=== PATIENT | male | born 1945 | race Caucasian/White ===

== ENCOUNTER 2022-11-14 04:06 | Inpatient (IN) | payer MEDICARE, BC ==
[2022-11-14] VITALS (46 sets, daily range): BP systolic 86–144; BP diastolic 49–99
[~2022-11-14] VITALS: Ht 182.9 cm; Wt 83.0 kg
--- NOTE | 2022-11-14 04:15 | NUR ---
To ER bed 12 [id number], from home, c/o Left flank pain this morning, 04/11 ps, aaox4, breathing even and non labored, connected to monitor, awaiting md andrade
[2022-11-14] MEDS ORDERED: KETOROLAC TROMETHAMINE INJ 30 MG/ML VIAL ONE (04:23)
[2022-11-14] MEDS ORDERED: IV NS 0.9% 1,000 ML BAG IV ONE ×2 (04:30→05:30)
[2022-11-14] MEDS ORDERED: KETOROLAC TROMETHAMINE INJ 30 MG/ML VIAL IV ONE (04:30)
[2022-11-14 04:57] LABS: BASOPHILS % (AUTO) 0.4 % (0.0-2.0); EOSINOPHILS % (AUTO) 1.4 % (0.0-6.0); HEMATOCRIT 38 % (39-51); HEMOGLOBIN 12.2 g/dL (13.5-17.5); LYMPHOCYTES # (AUTO) 0.3 K/uL (0.8-4.8); LYMPHOCYTES % (AUTO) 2.5 % (20.0-44.0); MEAN CORPUSCULAR HGB CONC 32 g/dl (31.0-36.0); MEAN CORPUSCULAR VOLUME 89 fL (80-96); MONOCYTES % (AUTO) 0.4 % (2.0-12.0); NEUTROPHILS # (AUTO) 12.2 K/uL (1.8-8.9); NEUTROPHILS % (AUTO) 95.3 % (43.0-81.0); PLATELET COUNT (AUTO) 261 K/uL (150-450); RED BLOOD CELL COUNT(AUTO) 4.27 MIL/uL (4.5-6.0); WHITE BLOOD COUNT (AUTO) 12.8 K/uL (4.3-11.0)
--- NOTE | 2022-11-14 05:01 | NUR ---
PT UROLOGIST- DR CALE BUCHANAN
[2022-11-14 05:09] LABS: CALCIUM, SERUM 8.6 mg/dL (8.5-10.1); CARBON DIOXIDE 15 mmol/L (21-32); CHLORIDE 91 mmol/L (98-107); CREATININE 6.4 mg/dL (0.6-1.3); GLUCOSE 54 mg/dL (74-106); POTASSIUM 5.3 mmol/L (3.5-5.1); SODIUM SERUM 125 mmol/L (136-145)
[2022-11-14] MEDS ORDERED: CEFEPIME 1 GM VIAL ONE (05:20)
[2022-11-14] MEDS ORDERED: ONDANSETRON HCL/PF 4 MG/2 ML VIAL ONE (05:20)
[2022-11-14] MEDS ORDERED: VANCOMYCIN 1 GM /D5W 250 ML PB IV ONE (05:21)
[2022-11-14 05:26] LABS: ALANINE AMINOTRANSFERASE 64 U/L (12-78); ALBUMIN 2.1 g/dL (3.4-5.0); ASPARTATE AMINOTRANSFERASE 76 U/L (15-37); BILIRUBIN,DIRECT 1.1 mg/dL (0.0-0.2); BILIRUBIN,TOTAL 1.7 mg/dL (0.2-1.0); TOTAL PROTEIN, SERUM 6.3 g/dL (6.4-8.2)
[2022-11-14 05:29] LABS: ALKALINE PHOSPHATASE 1230 U/L (46-116)
[2022-11-14 05:30] LABS: UREA NITROGEN, BLOOD 101 mg/dL (7-18)
[2022-11-14] MEDS ORDERED: ONDANSETRON HCL/PF - ER 4 MG/2 ML VIAL IV ONE (05:30)
[2022-11-14] MEDS ORDERED: CEFEPIME 1 GM in IV D5W 50 ML IV ONE (05:30)
[2022-11-14] MEDS ORDERED: VANCOMYCIN 1 GM in IV D5W 250 ML IV ONE (05:30)
[2022-11-14] MEDS ORDERED: MORPHINE SULFATE INJ 2 MG/ML DISP.SYRIN IV ONE ×2 (05:30→07:00)
[2022-11-14] MEDS ORDERED: MORPHINE SULFATE INJ 4 MG/ML DISP.SYRIN ONE ×2 (05:34→06:53)
--- NOTE | 2022-11-14 05:38 | NUR ---
MEDARDO VALDEZ AT BEDSIDE FOR BLOOD DRAW
--- NOTE | 2022-11-14 05:45 | NUR ---
DR BURKETT PAGED PER DR STARR.
--- NOTE | 2022-11-14 06:10 | NUR ---
ANDREE THOMASON PER DR DAVIS SUAREZ BP IMPROVES
[2022-11-14] MEDS ORDERED: Z GUARD REMEDY 4 OZ OINT TP PRN (08:00)
[2022-11-14] MEDS ORDERED: DEXTROSE 50%-WATER 50 ML DISP.SYRIN IV PRN (08:00)
[2022-11-14] MEDS ORDERED: ACETAMINOPHEN 325 MG TABLET PO PRN (08:00)
[2022-11-14] MEDS ORDERED: ONDANSETRON HCL/PF 4 MG/2 ML VIAL IVP PRN (08:00)
[2022-11-14] MEDS ORDERED: MAGNESIUM HYDROXIDE 30 ML UDC PO PRN (08:00)
[2022-11-14] MEDS ORDERED: TAMSULOSIN 0.4 MG CAP.SR.24H PO ONE (08:00)
[2022-11-14] MEDS ORDERED: MAG HYDROX/AL HYDROX/SIMETH 30 ML UDC PO PRN (08:00)
[2022-11-14] MEDS ORDERED: NOREPINEPHRINE 8 MG in IV NS 0.9% 242 ML IV PRN ×2 (08:00→12:00)
--- NOTE | 2022-11-14 09:12 | NUR ---
PATIENT RESTING COMFORTABLY , NO SIGNS AND SYMPTOMS OF DISTRESS. VITAL SIGNS STABLE.
--- NOTE | 2022-11-14 10:06 | NUR ---
GOT BED 262 ADMITTING INFORMED.
--- NOTE | 2022-11-14 10:30 | NUR ---
PRICE ECONOMIST AT BEDSIDE
--- NOTE | 2022-11-14 10:41 | NUR ---
REPORT GIVEN TO SIMON FOR JANES
--- NOTE | 2022-11-14 10:58 | NUR ---
RN NOTES RECEIVED PT FROM ER, IN ROOM 261, A/Ox4, ON 2L O2 N/C , O2 SAT WNL, ON TELE SR , PT ON LEVO FOR BP SUPPORT, IVF NS AT 75 CC/HR STARTED, IV SITE CDI, PT DENIES ANY PAIN AT THIS TIME, SR UP x3 , CALL LIGHT WITHIN EASY REACH, BED LOCKED AND IN LOWEST POSITION, CONTINUE TO MONITOR.
[2022-11-14] MEDS ORDERED: MORPHINE SULFATE INJ 4 MG/ML DISP.SYRIN IV PRN (11:30)
[2022-11-14] MEDS: IV NS 0.9% 1,000 ML IV PRN ×2 (11:33→23:29)
[2022-11-14] MEDS: PANTOPRAZOLE 40 MG VIAL IV SCH (11:36)
--- NOTE | 2022-11-14 11:59 | NUR ---
MACI THOMPSON GOING TO TALK WITH BRICK YARD HAND, DO TO NOT ENOUGH FLUID TO DRAIN,IF DR STILL WANTS PROCEDURE PT NEEDS LABS ,COAGS, NPO , AND HOLD ON BLOOD THINNERS, STANDING BY FOR
[2022-11-14] MEDS: BLOOD SUGAR DIAGNOSTIC 1 EACH STRIP IN SCH ×3 (12:05→21:56)
[2022-11-14] MEDS: NOREPINEPHRINE 32 MG in IV NS 0.9% 250 ML IV PRN ×2 (12:52→13:32)
--- NOTE | 2022-11-14 15:15 | NUR ---
RN NOTES CONSENT SIGNED BY PT FOR JJ STENT PLACEMENT .
[2022-11-14 15:33] LABS: BILIRUBIN,URINE NEGATIVE (NEGATIVE); COLOR,URINE YELLOW (YELLOW); LEUKOCYTE ESTERASE ,URINE 1+ (NEGATIVE); NITRITE, URINE NEGATIVE (NEGATIVE); PH,URINE 5.5 (5.0-8.0); PROTEIN,URINE 1+ mg/dl (NEGATIVE); UGLUCOSE NEGATIVE (NEGATIVE)
[2022-11-14 15:39] LABS: BACTERIA,URINE 2+ /HPF (None Seen); MUCUS,URINE Few /LPF (None Seen); URINE AMORPHOUS URATE Many /HPF (None Seen)
[2022-11-14] MEDS ORDERED: ANESTHESIA TRAY IN PYXIS 1 EA TRAY MC ONE ×2 (15:52→15:53)
--- NOTE | 2022-11-14 16:10 | NUR ---
RN NOTES PT TO OR IN STABLE CONDITION AT THIS TIME
[2022-11-14] MEDS ORDERED: FENTANYL PF 100MCG/2ML AMPUL ONE (16:40)
--- NOTE | 2022-11-14 17:55 | NUR ---
RN NOTES PT RECEIVED FROM RECOVERY, DRAWZY EASY TO AROUSE , FOLLOWS COMMANDS , ON A FACE MASK AT 6L, VSS STABLE CONTINUE TO MONITOR
--- NOTE | 2022-11-14 18:25 | NUR ---
RN NOTES LEVO AT 0.1 MCG/KG/MIN, PT AWAKE, IVF AT 75CC/HR RUNNING, SR UP x3, CALL LIGHT WITHIN EASY REACH, BED LOCKED AND IN LOWEST POSITION , WILL ENDORSE TO CLOUD ADMINISTRATOR NURSE FOR CONTINUITY OF CARE .
--- NOTE | 2022-11-14 19:30 | NUR ---
RECEIVED PT AWAKE ON BED, RESTING COMFORTABLY. A/OX4. PT IS ON ROOM AIR. 02SAT 92%. ATTACHED TO MDM DEVELOPER SHOWING NSR. IV SITES ON LFA #20G AND RT AC #20G C/D/I, IVF NS INFUSING AT 75 ML/HR, LEVO INFUSING AT 0.1 MCG/KG/MIN. URINAL AT BEDSIDE. OFFERED TO ASSIST PT TO URINATE. SAFETY MEASURES IN PLACE. SR UP x2, CALL LIGHT WITHIN EASY REACH, BED LOCKED AND IN LOWEST POSITION. HOB ELEVATED. WILL CONTINUE PLAN OF CARE.
[2022-11-14] MEDS: ZOLPIDEM TARTRATE 5 MG TABLET PO PRN (21:56)
--- NOTE | 2022-11-14 22:25 | NUR ---
DIGITAL ASSOCIATE informed. blood culture result shows gram variable rods, seen on gram.
[2022-11-14] MEDS: INSULIN REGULAR, HUMAN 100 UNIT/ML 3 ML VIAL SQ PRN (22:30)
--- NOTE | 2022-11-14 23:00 | NUR ---
PICC LINE INSERTED ON TALIA. PLACEMENT CONFIRMED BY XRAY.
[2022-11-15] VITALS (45 sets, daily range): BP systolic 94–140; BP diastolic 52–85
[2022-11-15 04:55] LABS: BASOPHILS # (AUTO) 0.1 K/uL (0.0-0.2); BASOPHILS % (AUTO) 0.4 % (0.0-2.0); EOSINOPHILS % (AUTO) 1.8 % (0.0-6.0); HEMATOCRIT 33 % (39-51); HEMOGLOBIN 10.6 g/dL (13.5-17.5); LYMPHOCYTES # (AUTO) 0.9 K/uL (0.8-4.8); LYMPHOCYTES % (AUTO) 3.4 % (20.0-44.0); MEAN CORPUSCULAR HGB CONC 32 g/dl (31.0-36.0); MEAN CORPUSCULAR VOLUME 89 fL (80-96); MONOCYTES # (AUTO) 1.1 K/uL (0.1-1.30); NEUTROPHILS # (AUTO) 23.8 K/uL (1.8-8.9); NEUTROPHILS % (AUTO) 90.4 % (43.0-81.0); PLATELET COUNT (AUTO) 231 K/uL (150-450); RED BLOOD CELL COUNT(AUTO) 3.72 MIL/uL (4.5-6.0); WHITE BLOOD COUNT (AUTO) 26.3 K/uL (4.3-11.0)
[2022-11-15 05:14] LABS: CALCIUM, SERUM 7.6 mg/dL (8.5-10.1); CARBON DIOXIDE 17 mmol/L (21-32); CHLORIDE 95 mmol/L (98-107); CHOLESTEROL 92 mg/dL (<200); CREATININE 6.3 mg/dL (0.6-1.3); GLUCOSE 119 mg/dL (74-106); HDL CHOLESTEROL 11 mg/dL (40-60); LDL 18 mg/dL (0-99); MAGNESIUM 1.8 mg/dL (1.8-2.4); PHOSPHORUS 3.1 mg/dL (2.5-4.9); POTASSIUM 5.3 mmol/L (3.5-5.1); SODIUM SERUM 127 mmol/L (136-145); TRIGLYCERIDES 505 mg/dL (30-150)
[2022-11-15 05:19] LABS: UREA NITROGEN, BLOOD 99 mg/dL (7-18)
[2022-11-15] MEDS: CEFEPIME 2 GM in IV D5W 100 ML IV SCH (05:25)
[2022-11-15 06:12] LABS: EOSINOPHILS % (MANUAL) 1 % (0-4); LYMPHOCYTES % (MANUAL) 1 % (16-48); MYELOCYTES % 97 % (0-0); PROMYELOCYTES % 1 % (0-0)
--- NOTE | 2022-11-15 07:15 | NUR ---
RECEIVED REPORT ON PATIENT FROM RUST MACI JACK. PATIENT REMAINS IN ROOM, ASLEEP BUT EASILY AWOKEN. ALERT AND ORIENTED TIMES 4. SINUS RYTHYM ON BEDSIDE MONITOR AT THIS TIME. URINAL AT BEDSIDE, PATIENT IS CONTINENT. NPO STATUS NOTED. IV ACCESS ON LEFT FORE ARM AND RIGHT ANTECUBITAL, BOTH 20 GAUGE. ALSO WITH RIGHT UPPER ARM PICC LINE. INFUSING FLUIDS AND LEVOPHED ORDERED. SAFETY MEASURES IMPLEMENTED, WILL CONTINUE PLAN OF CARE AND ANTICIPATE NEEDS.
[2022-11-15] MEDS: BLOOD SUGAR DIAGNOSTIC 1 EACH STRIP IN SCH ×4 (07:30→22:17)
--- NOTE | 2022-11-15 07:53 | NUR ---
BLOOD SUGAR CHECK READING 132. HOLDING INSULIN DUE TO NPO STATUS
--- NOTE | 2022-11-15 08:11 | NUR ---
PATIENT ASLEEP BUT EASILY AROUSABLE/RESPONSIVE. A/OX4. SR ON BEDSIDE MONITOR. URINAL AT BEDSIDE, PATIENT IS CONTINENT. NPO. IV ACCESS ON LEFT FORE ARM AND RIGHT ANTECUBITAL, BOTH 20 GAUGE. ALSO WITH RIGHT UPPER ARM PICC LINE. INFUSING FLUIDS AND LEVOPHED ORDERED. SAFETY MEASURES MAINTAINED. WILL ENDORSE TO NEXT NURSE ON DUTY FOR CONTINUITY OF CARE.
[2022-11-15] MEDS: PANTOPRAZOLE 40 MG VIAL IV SCH (08:20)
--- NOTE | 2022-11-15 10:30 | NUR ---
PATIENT ASLEEP AND SNORING. OXYGEN SATURATION DOWN TO 85-88%. pLACED ON 2 LITERS NASAL CANULA. WILL CONTINUE TO ASSESS.
[2022-11-15] MEDS ORDERED: ALLO100T PO (12:10)
[2022-11-15] MEDS ORDERED: ROSU20TA32 PO (12:10)
[2022-11-15] MEDS ORDERED: AMLO-213 PO (12:10)
[2022-11-15] MEDS ORDERED: HYDR-3972 PO (12:10)
[2022-11-15] MEDS ORDERED: METF-442 PO (12:10)
[2022-11-15] MEDS ORDERED: CARV12.52 PO (12:10)
[2022-11-15] MEDS ORDERED: ONDA8TAB13 PO (12:10)
[2022-11-15] MEDS ORDERED: TAMS-12 PO (12:10)
[2022-11-15] MEDS ORDERED: RAMI10CA69 PO (12:10)
[2022-11-15] MEDS: IV NS 0.9% 1,000 ML IV PRN (13:02)
[2022-11-15] MEDS ORDERED: SODIUM POLYSTYRENE SULF. PWD 15 GM UDC PO ONE (14:00)
[2022-11-15] MEDS: IV NS 0.9% 1,000 ML IV SCH (14:00)
[2022-11-15] MEDS: INSULIN REGULAR, HUMAN 100 UNIT/ML 3 ML VIAL SQ PRN ×2 (16:55→22:29)
--- NOTE | 2022-11-15 19:19 | NUR ---
HAND OFF REPORT GIVEN TO MARCIE FOR CONTINUATION OF CARE.
--- NOTE | 2022-11-15 19:30 | NUR ---
PATIENT AWAKE RESTING COMFORTABLY WITH AT BEDSIDE. A/OX4. SR ON BEDSIDE MONITOR. URINAL AND COMMODE AT BEDSIDE, PATIENT IS CONTINENT. IV ACCESS ARE TALIA PICC LINE, LEFT FORE ARM #20G AND RIGHT ANTECUBITAL #20G, INFUSING 0.9 NS @ 90 ML/HR. SAFETY MEASURES IN PLACE. SR UP x2, BED LOCKED AND IN LOWEST POSITION. HOB ELEVATED. WILL CONTINUE PLAN OF CARE.
[2022-11-15] MEDS: ZOLPIDEM TARTRATE 5 MG TABLET PO PRN (22:17)
[2022-11-16] VITALS (20 sets, daily range): BP systolic 100–153; BP diastolic 56–83
[2022-11-16] MEDS: IV NS 0.9% 1,000 ML IV SCH (00:31)
[2022-11-16] MEDS: CEFEPIME 2 GM in IV D5W 100 ML IV SCH (04:31)
[2022-11-16 04:42] LABS: BASOPHILS # (AUTO) 0.1 K/uL (0.0-0.2); BASOPHILS % (AUTO) 0.4 % (0.0-2.0); EOSINOPHILS % (AUTO) 3.7 % (0.0-6.0); HEMATOCRIT 30 % (39-51); HEMOGLOBIN 9.9 g/dL (13.5-17.5); LYMPHOCYTES # (AUTO) 1.3 K/uL (0.8-4.8); LYMPHOCYTES % (AUTO) 7.3 % (20.0-44.0); MEAN CORPUSCULAR HGB CONC 33 g/dl (31.0-36.0); MEAN CORPUSCULAR VOLUME 88 fL (80-96); MONOCYTES # (AUTO) 0.6 K/uL (0.1-1.30); MONOCYTES % (AUTO) 3.5 % (2.0-12.0); NEUTROPHILS # (AUTO) 15.1 K/uL (1.8-8.9); NEUTROPHILS % (AUTO) 85.1 % (43.0-81.0); PLATELET COUNT (AUTO) 193 K/uL (150-450); RED BLOOD CELL COUNT(AUTO) 3.45 MIL/uL (4.5-6.0); WHITE BLOOD COUNT (AUTO) 17.7 K/uL (4.3-11.0)
[2022-11-16 05:14] LABS: CALCIUM, SERUM 7.4 mg/dL (8.5-10.1); CARBON DIOXIDE 20 mmol/L (21-32); CHLORIDE 100 mmol/L (98-107); CREATININE 5.8 mg/dL (0.6-1.3); GLUCOSE 113 mg/dL (74-106); POTASSIUM 4.5 mmol/L (3.5-5.1); SODIUM SERUM 131 mmol/L (136-145)
[2022-11-16 05:17] LABS: UREA NITROGEN, BLOOD 105 mg/dL (7-18)
--- NOTE | 2022-11-16 07:38 | NUR ---
PATIENT AWAKE RESTING COMFORTABLY WITH AT BEDSIDE. A/OX4. SR ON BEDSIDE MONITOR. URINAL AND COMMODE AT BEDSIDE, PATIENT IS CONTINENT. IV ACCESS ARE TALIA PICC LINE, LEFT FORE ARM #20G AND RIGHT ANTECUBITAL #20G, INFUSING 0.9 NS @ 90 ML/HR. SAFETY MEASURES IN PLACE. SR UP x2, BED LOCKED AND IN LOWEST POSITION. HOB ELEVATED. WILL ENDORSE TO NEXT NURSE ON DUTY FOR CONTINUITY OF CARE.
--- NOTE | 2022-11-16 07:42 | NUR ---
RN ANESTHESIOLOGY OPENING NOTES RECEIVED PATIENT SLEEPING, EASILY AWAKEN. ON 02 VIA NC AT 2LPM 02,TOLERATING WELL, NO SOB NOTED, RESPIRATION EVEN AND UNLABORED. A/OX4. URINAL AND COMMODE AT BEDSIDE, PATIENT IS CONTINENT. IV ACCESS ARE TALIA PICC LINE, LEFT FORE ARM #20G AND RIGHT ANTECUBITAL #20G, INFUSING 0.9 NS @ 90 ML/HR. SAFETY MEASURES IN PLACE. SR UP x2, BED LOCKED AND IN LOWEST POSITION. PLAN OF CARE CONTINUE.
[2022-11-16] MEDS: BLOOD SUGAR DIAGNOSTIC 1 EACH STRIP IN SCH ×4 (07:49→21:24)
[2022-11-16] MEDS: PANTOPRAZOLE 40 MG VIAL IV SCH (08:06)
[2022-11-16] MEDS: PANTOPRAZOLE 40 MG TABLET.DR PO SCH (08:19)
[2022-11-16] MEDS: IV NS 0.9% 1,000 ML IV PRN ×2 (09:52→23:06)
[2022-11-16] MEDS: INSULIN REGULAR, HUMAN 100 UNIT/ML 3 ML VIAL SQ PRN ×3 (11:51→21:27)
[2022-11-16] MEDS ORDERED: VANCOMYCIN 1 GM in IV D5W 250 ML IV SCH (14:00)
--- NOTE | 2022-11-16 16:25 | NUR ---
PATIENT'S KAMLA BERNAL WANT'S TO SPEAK WITH DR. AREVALO GAVE 'S PHONE NO [phone]. AWAITING FOR RESPOND.
--- NOTE | 2022-11-16 18:55 | NUR ---
TRANSFERRED PATIENT TO MED SURG DEPARTMENT ROOM 310-2 VIA ACLS PROTOCOL, AT THE BEDSIDE, TRANSFERRED ALL MEDICATIONS AND PERSONAL BELONGINGS WITH THE PATIENT. GAVE BEDSIDE REPORT TO RAHUL LUX.
--- NOTE | 2022-11-16 19:22 | NUR ---
ADMISSION NOTES RECEIVED PATIENT FROM ICU ACCOMPANIED BY ICU STAFF. PATIENT AWAKE RESTING COMFORTABLY WITH AT BEDSIDE. A/OX4. ON OXYGEN AT 2LPM, NO RESPIRATORY OR CARDIAC DISTRESS NOTED. PLACED TELE MONITOR WITH CURRENT READ OF SR HR 85. IV ACCESS ARE TALIA PICC LINE, LEFT FORE ARM #20G AND RIGHT ANTECUBITAL #20G, INFUSING 0.9 NS @ 90 ML/HR. ORIENTED PATIENT TO ROOM. SAFETY MEASURES IN PLACE. SR UP x2, BED LOCKED AND IN LOWEST POSITION. HOB ELEVATED. WILL ENDORSE TO NEXT NURSE ON DUTY FOR CONTINUITY OF CARE.
--- NOTE | 2022-11-16 19:30 | NUR ---
FABRICATOR ARTIFICIAL BREAST OPENING NOTE RECEIVED PATIENT IN BED, WITH HOB ELEVATED, ALERT AND ORIENTED X4, WITH AT BEDSIDE. ABLE TO MAKE NEEDS KNOWN. AFEBRILE AND NOT IN ANY FORM OF ACUTE DISTRESS. ON O2 INHALATION VIA NASAL CANNULA AT 2LPM. ON TELE MONITORING WITH CURRENT READING OF SR 85. WITH TALIA PICC LINE RUNNING WITH NS AT 90ML/HR. SAFETY MEASURES IN PLACE. KEPT BED IN LOCKED AND IN LOW POSITION. SIDE RAILS UP X2. ADVISED TO USE THE CALL LIGHT WHEN IN NEED OF ASSISTANCE.
[2022-11-17] VITALS: BP 140/70
[2022-11-17 01:22] LABS: BAND % (MANUAL) 9 % (0.0-5.0); BASOPHILS % (MANUAL) 0 % (0.0-2.0); EOSINOPHILS % (MANUAL) 5 % (0-4); LYMPHOCYTES % (MANUAL) 9 % (16-48); MONOCYTES % (MANUAL) 6 % (0-11.0); NEUTROPHILS % (MANUAL) 71 (42-76)
[2022-11-17] MEDS: CEFEPIME 2 GM in IV D5W 100 ML IV SCH (04:27)
[2022-11-17 05:00] VITALS: BP 150/63
[2022-11-17] MEDS ORDERED: VANCOMYCIN 1 GM in IV D5W 250 ML IV SCH (06:00)
--- NOTE | 2022-11-17 06:26 | NUR ---
FREIGHT FLOW SALES LEADER CLOSING NOTE PATIENT IN BED, WITH HOB ELEVATED, ASLEEP BUT EASY TO AROUSE AND RESPONSIVE. ABLE TO MAKE NEEDS KNOWN. AFEBRILE AND NOT IN ANY FORM OF ACUTE DISTRESS. ON O2 INHALATION VIA NASAL CANNULA AT 2LPM. ON TELE MONITORING WITH CURRENT READING OF SR 80. WITH TALIA PICC LINE RUNNING WITH NS AT 90ML/HR. MONITORED FOR ANY S/SX. OF HYPO/HYPERGLYCEMIA. MEDICATED ORDERED. CONTINUOUS ON IV ATB, MONITORED FOR ANY ADVERSE REACTION. SAFETY MEASURES IN PLACE. KEPT BED IN LOCKED AND IN LOW POSITION. SIDE RAILS UP X2. ADVISED TO USE THE CALL LIGHT WHEN IN NEED OF ASSISTANCE. ALL NURSING NEEDS ATTENDED. ENDORSED TO INCOMING SHIFT FOR CONTINUITY OF CARE.
[2022-11-17] MEDS: BLOOD SUGAR DIAGNOSTIC 1 EACH STRIP IN SCH ×4 (06:37→21:23)
--- NOTE | 2022-11-17 07:15 | NUR ---
ZIGZAG APPLIQUER OPENING NOTE: RECEIVED PT IN BED. AOX4. ABLE TO MAKE NEEDS KNOWN. DENIES PAIN OR DISCOMFORT. HOB KEPT ELEVATED. NO RESP DISTRESS NOTED. SKIN WARM AND DRY TO TOUCH. AFEBRILE. CALL LIGHT KEPT WITHIN REACH.
[2022-11-17 07:23] LABS: CALCIUM, SERUM 7.6 mg/dL (8.5-10.1); CARBON DIOXIDE 17 mmol/L (21-32); CHLORIDE 103 mmol/L (98-107); CREATININE 4.8 mg/dL (0.6-1.3); GLUCOSE 134 mg/dL (74-106); POTASSIUM 4.3 mmol/L (3.5-5.1); SODIUM SERUM 133 mmol/L (136-145)
[2022-11-17 07:28] LABS: UREA NITROGEN, BLOOD 89 mg/dL (7-18)
[2022-11-17 08:34] VITALS: BP 145/80
[2022-11-17] MEDS: PANTOPRAZOLE 40 MG TABLET.DR PO SCH (09:04)
[2022-11-17] MEDS: IV NS 0.9% 1,000 ML IV PRN ×2 (10:34→21:50)
[2022-11-17] MEDS: HYDROMORPHONE INJ 2 MG/ML DISP.SYRIN IV PRN (10:36)
[2022-11-17 11:37] LABS: BASOPHILS # (AUTO) 0.1 K/uL (0.0-0.2); BASOPHILS % (AUTO) 0.4 % (0.0-2.0); EOSINOPHILS % (AUTO) 4.1 % (0.0-6.0); HEMATOCRIT 34 % (39-51); HEMOGLOBIN 10.6 g/dL (13.5-17.5); LYMPHOCYTES # (AUTO) 0.9 K/uL (0.8-4.8); MEAN CORPUSCULAR HGB CONC 32 g/dl (31.0-36.0); MEAN CORPUSCULAR VOLUME 91 fL (80-96); MONOCYTES # (AUTO) 0.8 K/uL (0.1-1.30); MONOCYTES % (AUTO) 3.4 % (2.0-12.0); NEUTROPHILS # (AUTO) 20.6 K/uL (1.8-8.9); NEUTROPHILS % (AUTO) 88.1 % (43.0-81.0); PLATELET COUNT (AUTO) 223 K/uL (150-450); RED BLOOD CELL COUNT(AUTO) 3.69 MIL/uL (4.5-6.0); WHITE BLOOD COUNT (AUTO) 23.4 K/uL (4.3-11.0)
[2022-11-17] MEDS: INSULIN REGULAR, HUMAN 100 UNIT/ML 3 ML VIAL SQ PRN ×2 (11:37→17:13)
[2022-11-17 11:54] VITALS: BP 144/69
[2022-11-17] MEDS: CEFTRIAXONE 2 G in IV D5W 100 ML IV SCH (13:44)
[2022-11-17 16:10] VITALS: BP 140/62
--- NOTE | 2022-11-17 17:10 | NUR ---
MS RN NOTE: DR. KIRK AT BEDSIDE SPEAKING TO PT AND .
--- NOTE | 2022-11-17 18:23 | NUR ---
MS RN CLOSING NOTE PATIENT IN BED, WITH HOB ELEVATED, AOX4 ABLE TO MAKE NEEDS KNOWN. AFEBRILE AND NOT IN ANY FORM OF ACUTE DISTRESS. ON O2 INHALATION VIA NASAL CANNULA AT 2LPM. WITH TALIA PICC LINE RUNNING WITH NS AT 90ML/HR. MONITORED FOR ANY S/SX. OF HYPO/HYPERGLYCEMIA. MEDICATION GIVEN ORDERED. SAFETY MEASURES IN PLACE. KEPT BED IN LOCKED AND IN LOW POSITION. SIDE RAILS UP X2. CALL LIGHT WITHIN REACH.
--- NOTE | 2022-11-17 19:30 | NUR ---
MS RN OPENING NOTE RECEIVED PATIENT IN BED, WITH HOB ELEVATED, AWAKE, ALERT AND ORIENTED X4. ABLE TO MAKE NEEDS KNOWN. AFEBRILE AND NOT IN ANY FORM OF ACUTE DISTRESS. ON O2 INHALATION VIA NASAL CANNULA AT 2LPM. WITH TALIA PICC LINE RUNNING WITH NS AT 90ML/HR. SAFETY MEASURES IN PLACE. KEPT BED IN LOCKED AND IN LOW POSITION. SIDE RAILS UP X2. ADVISED TO USE THE CALL LIGHT WHEN IN NEED OF ASSISTANCE.
[2022-11-17 20:00] VITALS: BP 166/70
--- NOTE | 2022-11-18 06:30 | NUR ---
MS RN CLOSING NOTE PATIENT IN BED, WITH HOB ELEVATED, ASLEEP BUT EASY TO AROUSE AND RESPONSIVE. ABLE TO MAKE NEEDS KNOWN. AFEBRILE AND NOT IN ANY FORM OF ACUTE DISTRESS. ON O2 INHALATION VIA NASAL CANNULA AT 2LPM. WITH TALIA PICC LINE RUNNING WITH NS AT 90ML/HR. MONITORED FOR ANY S/SX. OF HYPO/HYPERGLYCEMIA. DUE MEDS GIVEN. CONTINUOUS ON IV ATB, MONITORED FOR ANY ADVERSE REACTION. SAFETY MEASURES IN PLACE. KEPT BED IN LOCKED AND IN LOW POSITION. SIDE RAILS UP X2. ADVISED TO USE THE CALL LIGHT WHEN IN NEED OF ASSISTANCE. ALL NURSING NEEDS ATTENDED. ENDORSED TO INCOMING SHIFT FOR CONTINUITY OF CARE.
[2022-11-18] MEDS: BLOOD SUGAR DIAGNOSTIC 1 EACH STRIP IN SCH ×4 (06:58→21:07)
[2022-11-18] MEDS: INSULIN REGULAR, HUMAN 100 UNIT/ML 3 ML VIAL SQ PRN ×4 (06:59→21:09)
[2022-11-18 07:00] LABS: BASOPHILS # (AUTO) 0.1 K/uL (0.0-0.2); BASOPHILS % (AUTO) 0.6 % (0.0-2.0); EOSINOPHILS % (AUTO) 3.9 % (0.0-6.0); HEMATOCRIT 33 % (39-51); HEMOGLOBIN 10.3 g/dL (13.5-17.5); LYMPHOCYTES # (AUTO) 0.9 K/uL (0.8-4.8); LYMPHOCYTES % (AUTO) 3.9 % (20.0-44.0); MEAN CORPUSCULAR HGB CONC 32 g/dl (31.0-36.0); MEAN CORPUSCULAR VOLUME 89 fL (80-96); MONOCYTES # (AUTO) 0.9 K/uL (0.1-1.30); MONOCYTES % (AUTO) 3.9 % (2.0-12.0); NEUTROPHILS # (AUTO) 19.4 K/uL (1.8-8.9); NEUTROPHILS % (AUTO) 87.7 % (43.0-81.0); PLATELET COUNT (AUTO) 223 K/uL (150-450); RED BLOOD CELL COUNT(AUTO) 3.67 MIL/uL (4.5-6.0); WHITE BLOOD COUNT (AUTO) 22.2 K/uL (4.3-11.0)
[2022-11-18 07:07] LABS: CALCIUM, SERUM 7.7 mg/dL (8.5-10.1); CARBON DIOXIDE 18 mmol/L (21-32); CHLORIDE 106 mmol/L (98-107); CREATININE 3.9 mg/dL (0.6-1.3); GLUCOSE 139 mg/dL (74-106); POTASSIUM 4.2 mmol/L (3.5-5.1); SODIUM SERUM 136 mmol/L (136-145); UREA NITROGEN, BLOOD 72 mg/dL (7-18)
--- NOTE | 2022-11-18 07:30 | NUR ---
MS RN OPENING NOTES RECEIVED PATIENT ON BED AWAKE AND A/O X4. ON O2 AT 2LPM VIA NASAL CANNULA TOLERATING WELL. NO SOB NOTED. NOT IN DISTRESS. WITH IV ACCESS AT THE RIGHT UPPER ARM PICC LINE WITH IVF NS AT 90ML/HR INFUSING WELL. SAFETY MEASURES IN PLACED. CALL LIGHT WITHIN REACH. BED ON LOWEST LOCKED POSITION, SIDE RAILS UP X2. WILL CONTINUE TO MONITOR.
[2022-11-18] MEDS: PANTOPRAZOLE 40 MG TABLET.DR PO SCH (08:46)
[2022-11-18] MEDS: IV NS 0.9% 1,000 ML IV PRN ×2 (09:25→20:46)
[2022-11-18 09:53] VITALS: BP 139/63
[2022-11-18] MEDS: CEFTRIAXONE 2 G in IV D5W 100 ML IV SCH (13:27)
[2022-11-18] MEDS: HYDROMORPHONE INJ 2 MG/ML DISP.SYRIN IV PRN (15:48)
[2022-11-18 17:58] VITALS: BP 130/63
--- NOTE | 2022-11-18 18:35 | NUR ---
MS RN CLOSING NOTES PATIENT ON BED AWAKE AND A/O X4. ON O2 AT 2LPM VIA NASAL CANNULA TOLERATING WELL. NO SOB NOTED. NOT IN DISTRESS. WITH IV ACCESS AT THE RIGHT UPPER ARM PICC LINE WITH IVF NS AT 90ML/HR INFUSING WELL. DUE MEDS GIVEN. SAFETY MEASURES IN PLACED. CALL LIGHT WITHIN REACH. BED ON LOWEST LOCKED POSITION, SIDE RAILS UP X2. WILL ENDORSE TO NEXT SHIFT FOR JANES.
--- NOTE | 2022-11-18 19:30 | NUR ---
MS RN OPENING NOTE RECEIVED PATIENT IN BED, AWAKE, ALERT AND ORIENTED X4. ABLE TO MAKE NEEDS KNOWN. AFEBRILE AND NOT IN ANY FORM OF ACUTE DISTRESS. ON O2 INHALATION VIA NASAL CANNULA AT 2LPM. NO C/O PAIN OR DISCOMFORT AT THIS TIME. WITH IV ACCESS ON TALIA PICC LINE RUNNING WITH NS AT 90ML/HR AND LAC 20G AND RAC 20G-SL. SAFETY MEASURES IN PLACE. KEPT BED IN LOCKED AND IN LOW POSITION. SIDE RAILS UP X2. ADVISED TO USE THE CALL LIGHT WHEN IN NEED OF ASSISTANCE.
[2022-11-18 20:00] VITALS: BP 130/66
[2022-11-19] MEDS: HYDROMORPHONE INJ 2 MG/ML DISP.SYRIN IV PRN (01:24)
--- NOTE | 2022-11-19 06:20 | NUR ---
MS RN CLOSING NOTE PATIENT IN BED, ASLEEP BUT EASY TO AROUSE AND RESPONSIVE. ABLE TO MAKE NEEDS KNOWN. AFEBRILE AND NOT IN ANY FORM OF ACUTE DISTRESS. CONTINUOUS ON O2 INHALATION VIA NASAL CANNULA AT 2LPM. WITH TALIA PICC LINE RUNNING WITH NS AT 90ML/HR. MONITORED FOR ANY S/SX. OF HYPO/HYPERGLYCEMIA. MEDICATED ORDERED. CONTINUOUS ON IV ATB, MONITORED FOR ANY ADVERSE REACTION. SAFETY MEASURES IN PLACE. KEPT BED IN LOCKED AND IN LOW POSITION. SIDE RAILS UP X2. ADVISED TO USE THE CALL LIGHT WHEN IN NEED OF ASSISTANCE. ALL NURSING NEEDS ATTENDED. ENDORSED TO INCOMING SHIFT FOR CONTINUITY OF CARE.
[2022-11-19] MEDS: BLOOD SUGAR DIAGNOSTIC 1 EACH STRIP IN SCH ×2 (06:32→11:51)
[2022-11-19] MEDS: INSULIN REGULAR, HUMAN 100 UNIT/ML 3 ML VIAL SQ PRN ×2 (06:35→11:54)
[2022-11-19] MEDS: IV NS 0.9% 1,000 ML IV PRN (06:50)
[2022-11-19 07:00] VITALS: BP 148/63
[2022-11-19 07:09] LABS: BASOPHILS # (AUTO) 0.1 K/uL (0.0-0.2); BASOPHILS % (AUTO) 0.4 % (0.0-2.0); EOSINOPHILS % (AUTO) 3.5 % (0.0-6.0); HEMATOCRIT 34 % (39-51); HEMOGLOBIN 10.3 g/dL (13.5-17.5); LYMPHOCYTES # (AUTO) 1.3 K/uL (0.8-4.8); MEAN CORPUSCULAR HGB CONC 31 g/dl (31.0-36.0); MEAN CORPUSCULAR VOLUME 89 fL (80-96); MONOCYTES % (AUTO) 3.9 % (2.0-12.0); NEUTROPHILS # (AUTO) 22.5 K/uL (1.8-8.9); NEUTROPHILS % (AUTO) 87.2 % (43.0-81.0); PLATELET COUNT (AUTO) 259 K/uL (150-450); RED BLOOD CELL COUNT(AUTO) 3.76 MIL/uL (4.5-6.0); WHITE BLOOD COUNT (AUTO) 25.8 K/uL (4.3-11.0)
[2022-11-19 07:19] LABS: CALCIUM, SERUM 7.6 mg/dL (8.5-10.1); CARBON DIOXIDE 18 mmol/L (21-32); CHLORIDE 106 mmol/L (98-107); CREATININE 3.1 mg/dL (0.6-1.3); GLUCOSE 132 mg/dL (74-106); POTASSIUM 4.3 mmol/L (3.5-5.1); SODIUM SERUM 136 mmol/L (136-145); UREA NITROGEN, BLOOD 60 mg/dL (7-18)
--- NOTE | 2022-11-19 07:20 | NUR ---
RN OPENING NOTE RECEIVED PATIENT IN BED AWAKE, A/O X4, VERBALLY RESPONSIVE AND ABLE TO MAKE NEEDS KNOWN. NO SIGNS OF ACUTE DISTRESS NOTED. ON O2 INHALATION @2LPM VIA N/C, NO SOB NOTED, BREATHING EVEN AND UNLABORED. NOTED WITH IV ACCESS ON LFA #20G AND RAC #20G, INTACT AND PATENT, SALINE LOCKED. WITH PICC LINE ON RIGHT UPPER ARM, INTACT AND PATENT RUNNING NS @90 ML/HR. PATIENT DENIES ANY PAIN AT THIS TIME. SAFETY MEASURE IN PLACE. BED IN LOW AND LOCKED POSITION, SIDE RAILS UP X2, CALL LIGHT PLACED WITHIN EASY REACH. WILL CONTINUE TO MONITOR PATIENT.
[2022-11-19] MEDS: PANTOPRAZOLE 40 MG TABLET.DR PO SCH (08:30)
[2022-11-19] MEDS: CEFTRIAXONE 2 G in IV D5W 100 ML IV SCH (12:48)
--- NOTE | 2022-11-19 16:37 | NUR ---
RN DC NOTE PT DC TO HOME IN STABLE CONDITION. PT REMAINS AWAKE A&OX4 VERBAL RESPONSIVE. IV ACCESS ON LEFT FOREARM AND RIGHT AC REMOVED. NO BLEEDING NOTED, PRESSURE DRESSING APPLIED TO SITES. TALIA PICC LINE KEPT, PT TO CONTINUE IV ANTIBIOTICS DAILY FOR 5 DAYS WITH HOME HEALTH. TALIA PICC LINE REMAINS INTACT AND PATENT AND FLUSHES WELL. ID BAND REMOVED. EXIT CARE FOLDER GIVEN TO PATIENT AND WAS PRESENT. HEALTH TEACHING PROVIDED AND DC INSTRUCTIONS PROVIDED WITH VERBALIZATION OF UNDERSTANDING. LINK TRAINER ARRANGED FOR [facility] TO FOLLOW UP WITH PT. ALL BELONGINGS ACCOUNTED FOR , FORMS SIGNED BY PATIENT. PT LEFT UNIT VIA WHEELCHAIR AROUND 1630, ACCOMPANIED BY SOPHIA PRINCE TO THE LOBBY. PICKED UP PT VIA PRIVATE CAR. CHARGE NURSE AWARE OF DC.
== END 2022-11-19 16:28 | disposition home health service (06) | DRG 853 ==
LOC: ER 04:09 → ICU 10:25 → TELE 11-16 18:35 → MED 11-17 13:13
PROVIDERS: ADMIT Nurse Practitioner Acute Care
PROC: 0T778DZ Dilation of Left Ureter with Intraluminal Device, Via Natural or Artificial Opening Endoscopic (ICD-10-PCS; principal; 2022-11-14)
PROC: 02HV33Z Insertion of Infusion Device into Superior Vena Cava, Percutaneous Approach (ICD-10-PCS; 2022-11-14)
DX: A41.9 Sepsis, unspecified organism (principal); I71.02 Dissection of abdominal aorta; N17.0 Acute kidney failure with tubular necrosis; R65.21 Severe sepsis with septic shock; E87.1 Hypo-osmolality and hyponatremia; D47.1 Chronic myeloproliferative disease; I31.39 Other pericardial effusion (noninflammatory); J90 Pleural effusion, not elsewhere classified; N13.6 Pyonephrosis; N11.1 Chronic obstructive pyelonephritis; R73.9 Hyperglycemia, unspecified; E87.5 Hyperkalemia; E78.5 Hyperlipidemia, unspecified; I10 Essential (primary) hypertension; E11.9 Type 2 diabetes mellitus without complications; D63.8 Anemia in other chronic diseases classified elsewhere; I25.10 Atherosclerotic heart disease of native coronary artery without angina pectoris; Z20.822 Contact with and (suspected) exposure to COVID-19; Z68.30 Body mass index [BMI] 30.0-30.9, adult; Z79.4 Long term (current) use of insulin; R16.2 Hepatomegaly with splenomegaly, not elsewhere classified; R59.0 Localized enlarged lymph nodes; Z87.442 Personal history of urinary calculi; Z88.1 Allergy status to other antibiotic agents
CPT/HCPCS: 36415; 71045-TC; 74018; 76770-TC; 80048-TC; 80061-TC; 80076-TC; 80202-TC; 81001; 82533; 82962-TC; 83605-TC; 83735-TC; 84100-TC; 84443-TC; 85025-TC; 86803; 87040-TC; 87081-TC; 87086-TC; 87806; 93307-TC; A4217; A4223; C1769; C2617; C9113; C9803; G0378; J0692; J0696; J1170; J1815; J1885; J2270; J2405; J3010; J3370; J3490; J7030; J7050; J7060